=== PATIENT | female | born 1975 | race Caucasian/White ===

== ENCOUNTER 2016-10-26 12:59 | Emergency (ER) | payer MEDICARE ==
[~2016-10-26] VITALS: Ht 149.9 cm; Wt 67.1 kg
[~2016-10-26 12:59] MED LIST: BENADRYL25 MG PO; BENTYL10 MG PO; MUCINEX600 MG PO; NEURONTIN100 MG PO; NORCO 10-325 T1 EACH PO; NORCO 7.5-3251 EACH PO; PAIN RELIEF EX500 MG PO; PANTOPRAZOLE SO40 MG PO; PROMETHAZI6.25 MG/5 PO; PROMETHAZINE HC25 M1 PO; [UNRECOGNIZED DRUG - OTHER]
[2016-10-26] MEDS ORDERED: NORTRIPTYLINE H50 MG PO (13:13)
[2016-10-26] MEDS ORDERED: NORCO 5-325 TA1 EACH PO (16:41)
== END 2016-10-26 16:58 | disposition home or self-care (01) ==
LOC: ED 12:59
DX: Q79.59 Other congenital malformations of abdominal wall (principal); F17.200 Nicotine dependence, unspecified, uncomplicated; Z90.49 Acquired absence of other specified parts of digestive tract; Z90.710 Acquired absence of both cervix and uterus; Z88.1 Allergy status to other antibiotic agents; Z88.8 Allergy status to other drugs, medicaments and biological substances; Z88.5 Allergy status to narcotic agent; Z79.899 Other long term (current) drug therapy
CPT/HCPCS: 36415; 74177; 80053; 81001; 84703; 85025; 96361; 96374; 96375; 99284; J1170; J2550; J7120; Q9967

== ENCOUNTER 2016-11-30 18:02 | Emergency (ER) | payer MEDICARE ==
[~2016-11-30] VITALS: Ht 149.9 cm; Wt 62.6 kg
[~2016-11-30 18:02] MED LIST changes: +NORCO 5-325 TA1 EACH PO; +NORTRIPTYLINE H50 MG PO
[2016-11-30] MEDS ORDERED: NORCO 5-325 TA1 EACH PO (22:11)
== END 2016-11-30 22:37 | disposition home or self-care (01) ==
LOC: ED 18:02
DX: R10.12 Left upper quadrant pain (principal); K46.9 Unspecified abdominal hernia without obstruction or gangrene; Z98.890 Other specified postprocedural states; Z88.1 Allergy status to other antibiotic agents; Z88.5 Allergy status to narcotic agent; Z79.899 Other long term (current) drug therapy
CPT/HCPCS: 36415; 80053; 81001; 83690; 85025; 96361; 96374; 96375; 99284; J1170; J2550; J7030

== ENCOUNTER 2016-12-18 19:22 | Emergency (ER) | payer MEDICARE ==
[~2016-12-18] VITALS: Ht 149.9 cm; Wt 66.2 kg
[2016-12-18] MEDS ORDERED: GABAPENTIN100 MG PO (22:01)
[2016-12-18] MEDS ORDERED: NORCO 5-325 TA1 EACH PO (23:11)
== END 2016-12-18 23:30 | disposition home or self-care (01) ==
LOC: ED 19:22
DX: K43.9 Ventral hernia without obstruction or gangrene (principal); Z90.710 Acquired absence of both cervix and uterus; Z98.890 Other specified postprocedural states; Z90.49 Acquired absence of other specified parts of digestive tract; Z93.3 Colostomy status; Z93.2 Ileostomy status; Z88.1 Allergy status to other antibiotic agents; Z88.5 Allergy status to narcotic agent; Z79.899 Other long term (current) drug therapy
CPT/HCPCS: 99283

== ENCOUNTER 2017-02-14 14:28 | Emergency (ER) | payer MEDICARE ==
[~2017-02-14] VITALS: Ht 149.9 cm; Wt 66.2 kg
[~2017-02-14 14:28] MED LIST changes: +GABAPENTIN100 MG PO
[2017-02-14] MEDS ORDERED: BACTRIM DS TAB1 EACH PO (15:59)
== END 2017-02-14 16:08 | disposition home or self-care (01) ==
LOC: ED 14:28
DX: Z48.815 Encounter for surgical aftercare following surgery on the digestive system (principal); Z98.890 Other specified postprocedural states; Z90.710 Acquired absence of both cervix and uterus; Z93.2 Ileostomy status; Z90.49 Acquired absence of other specified parts of digestive tract; Z88.1 Allergy status to other antibiotic agents; Z88.8 Allergy status to other drugs, medicaments and biological substances; Z88.5 Allergy status to narcotic agent; Z88.0 Allergy status to penicillin; Z79.899 Other long term (current) drug therapy
CPT/HCPCS: 99283

== ENCOUNTER → 2017-06-14 | Emergency (ER) | payer OTHER, MEDICARE ==
[~2017-06-14] VITALS: Ht 149.9 cm; Wt 56.9 kg
[~2017-06-14] MED LIST changes: +ALLERGY RELIEF10 M1 PO; +BACTRIM DS TAB1 EACH PO; +METHYLPREDNISOLO4 M1 PO
== END ==
LOC: ED 08:49
DX: S63.501A Unspecified sprain of right wrist, initial encounter (principal); X58.XXXA Exposure to other specified factors, initial encounter; F17.200 Nicotine dependence, unspecified, uncomplicated; Z88.1 Allergy status to other antibiotic agents; Z88.8 Allergy status to other drugs, medicaments and biological substances; Z88.5 Allergy status to narcotic agent; Z88.0 Allergy status to penicillin; Z79.899 Other long term (current) drug therapy
CPT/HCPCS: 73080; 73110; 99283

== ENCOUNTER 2017-08-22 21:54 | Emergency (ER) | payer MEDICARE ==
[~2017-08-22] VITALS: Ht 149.9 cm; Wt 56.9 kg
[2017-08-22] MEDS ORDERED: XYZAL5 MG PO (22:20)
[2017-08-22] MEDS ORDERED: KEFLEX500 MG PO (23:43)
[2017-08-22] MEDS ORDERED: TRAMADOL HCL50 MG PO (23:44)
== END 2017-08-23 00:07 | disposition home or self-care (01) ==
LOC: ED 21:54
DX: N12 Tubulo-interstitial nephritis, not specified as acute or chronic (principal); F17.200 Nicotine dependence, unspecified, uncomplicated; Z88.1 Allergy status to other antibiotic agents; Z88.8 Allergy status to other drugs, medicaments and biological substances; Z88.5 Allergy status to narcotic agent; Z88.0 Allergy status to penicillin; Z79.899 Other long term (current) drug therapy
CPT/HCPCS: 74176; 80053; 81001; 83690; 85025; 96374; 96375; 99284; J1170; J1200; J1885

== ENCOUNTER 2017-08-25 16:02 | Emergency (ER) | payer MEDICARE ==
[~2017-08-25] VITALS: Ht 149.9 cm; Wt 56.9 kg
[~2017-08-25 16:02] MED LIST changes: +KEFLEX500 MG PO; +TRAMADOL HCL50 MG PO; +XYZAL5 MG PO
[2017-08-25] MEDS ORDERED: PROMETHAZINE HC25 M1 PO (20:21)
--- NOTE | 2017-08-27 09:30 | CONS ---
[facility] [address], [place] [address] Signed DATE OF CONSULTATION: 08/25/2017 CONSULTING PHYSICIAN: Twyla Reyna MD REQUESTING PHYSICIAN: Henok Bloom MD PROBLEM: Left-sided abdominal pain, questionable spigelian hernia. HISTORY OF PRESENT ILLNESS: This 41-year-old white woman is accompanied by her . She has a very complex past history. In brief, she underwent a laparoscopic hiatal hernia repair in [place], [place] at [facility] in 2011. This resulted in delay of diagnosis perforation of the bowel in someway requiring reoperation including open abdomen, diverting ileostomy, and other uncertain measures. She was transferred to [facility]. 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 Ultimately, the ostomy was reversed, which resulted in a significant incisional hernia. In January of 2017, she underwent incisional hernia repair by Dr. Burkett at [facility] in [facility], which from what I can gather likely involved component separation as well as implantation of mesh for incomplete mobilization of the fascia to the midline. She has been recovering from that. She was seen in the emergency room on August 22 and found to have a urinary tract infection for which she was treated with antibiotics. She returns at this time with complaints of poorly localized abdominal pain including on the left abdominal wall and possibly the left flank. A CT scan was performed, which showed anatomy of the incisional hernia repair showing good apposition of the rectus muscles and suggestion of hernia mesh near the rectus sheath. 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 There is no evidence of proximal or distal dilation or strangulation. No free fluid or inflammatory changes particularly. Incidentally noted was no evidence of nephrolithiasis or hydroureteral nephrosis, a Electronically Signed By: TWYLA REYNA MD 08/27/17 0930 PATIENT NAME: NINA SPEARS CONSULTATION DATE OF : 71 REPORT #: [id number] PHYSICIAN: TWYLA REYNA MD PCP: JUSTICE MORALES DO REPORT IS CONFIDENTIAL AND NOT TO BE RELEASED WITHOUT AUTHORIZATION [facility] [address], [place] [address] Signed widely patent SMA and ROMINA, but severe stenosis of celiac artery and findings of appendectomy and prior hysterectomy. I was consulted by Dr. Bloom as the patient is generally feeling quite well, has no white count, no fever, no signs of dehydration and the patient has been able to eat and drink without problem. The extent to which her urinary tract infection may be a manifestation with pain at this time is uncertain. REVIEW OF SYSTEMS: She denies any shortness of breath or chest pain. She is having no dysuria currently. She has had no nausea or vomiting. Her pain is not localized, it is mild. PHYSICAL EXAMINATION: GENERAL: Pleasant white woman accompanied by her . Trachea is midline. CHEST: Clear. HEART: Regular without murmur. ABDOMEN: Nondistended and soft. A healing midline incision is noted. Palpation along the incision site shows no sign of tenderness. There is no sign of infection. A left lower abdomen ileostomy and probably mucous fistula site is noted. Palpation of the area shows only subcutaneous scar tissue, no tenderness, no mass. EXTREMITIES: Show no clubbing, cyanosis, or edema. She does not have focal tenderness. DIAGNOSTIC DATA: I have reviewed her CT scan in detail. The area in question of "spigelian hernia" is noted and a small portion of the descending colon is noted in the area as well. It is not associated with any inflammatory change. A comparison view was undertaken of August the CT scan that was obtained as well. The area in question is similar, though not completely the same as there was no air distending the colon in that particular area. ASSESSMENT AND PLAN: I think it is unlikely to be a true spigelian hernia. I think the site in question is rather the attenuated side of prior ileostomy formation. It is clear that the transversus and internal oblique muscle layers have thinning or attenuation in the area and the external oblique is intact and it is likely true that a small portion of the colonic wall rest in that area. There is no sign of inflammation, no sign of obstruction and the colon is notoriously unlikely to be obstructed even if a Vega type position of the bowel is noted in an inter parietal small defect. I do not believe that operative intervention at this time is warranted. She is clinically doing well. I would agree with Dr. Bloom's plan to have the patient follow up with Dr. Morales in the coming week and followup for urinary tract infection and also as regard to the abdominal wall issue. I offered the patient to be admitted Electronically Signed By: TWYLA REYNA MD 08/27/17 0930 PATIENT NAME: NINA SPEARS CONSULTATION DATE OF : 71 REPORT #: [id number] PHYSICIAN: TWYLA REYNA MD PCP: JUSTICE MORALES DO REPORT IS CONFIDENTIAL AND NOT TO BE RELEASED WITHOUT AUTHORIZATION [facility] [address] [place] [address] Signed overnight for observation and further monitoring, but she strongly wishes not to do that if possible. She tells me she has had "14 months" of hospitalization more or less from the beginning of her surgical misadventures in 2011 and she certainly does not want to be in the hospital at all if possible. I did advise her that if things should worsen in some way, particularly nausea, vomiting, localized pain or other issue to call me or to return to the ER at once at which point, further consideration of this situation will be undertaken. She agrees to that. I reviewed this also with Dr. Bloom. MD AILEEN Zhao/NOELL /[id number] cc: Dr. Henok Burkett [facility] Henok Bloom MD Copies: HENOK BLOOM MD ~ Electronically Signed By: TWYLA REYNA MD 08/27/17 0930 PATIENT NAME: NINA SPEARS JOHN CONSULTATION DATE OF : 71 REPORT #: [id number] PHYSICIAN: TWYLA REYNA MD PCP: JUSTICE MORALES DO REPORT IS CONFIDENTIAL AND NOT TO BE RELEASED WITHOUT AUTHORIZATION
== END 2017-08-25 20:36 | disposition home or self-care (01) ==
LOC: ED 16:02
DX: R10.9 Unspecified abdominal pain (principal); F17.200 Nicotine dependence, unspecified, uncomplicated; Z87.442 Personal history of urinary calculi; Z88.1 Allergy status to other antibiotic agents; Z88.8 Allergy status to other drugs, medicaments and biological substances; Z88.5 Allergy status to narcotic agent; Z88.0 Allergy status to penicillin; Z79.899 Other long term (current) drug therapy
CPT/HCPCS: 74177; 80053; 81001; 85025; 96372; 96374; 96375; 99284; J1170; J1200; J1885; J2550; Q9967

== ENCOUNTER 2018-03-10 13:22 | Emergency (ER) | payer OTHER, MEDICARE ==
[~2018-03-10] VITALS: Ht 149.9 cm; Wt 56.9 kg
--- OUTSIDE RECORDS SUMMARY | 2018-03-10 13:26 | XMS ---
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 Care History Medical/Surgical 08/27/2017 [facility] - Patient is currently established with [facility]. If patient is seen in the ED during business hours. Please contact CHWs at [facility] at Ext [phone]. Care Recommendation: This patient has had 5 or more Emergency Department visits in the last 12 months.\T\nbsp; Patient requires education on the scope and purpose of the ED as an acute care provider not a Primary Care Provider and should not be utilized for chronic conditions.\T\nbsp; If patient returns to ED please contact Community Health WorkerKarime at [phone]. These are guidelines and the provider should exercise clinical judgment when providing care. E.D. VISIT COUNT (12 MO.) [address] [facility] TOTAL 5 NOTE: Visits indicate total known visits. ED/UCC VISIT TRACKING (12 MO.) 03/10/2018 13:23 [facility] [place] TYPE: Emergency COMPLAINT: - CHEST PAIN 08/30/2017 21:59 [facility] [place] TYPE: Emergency COMPLAINT: - POSS HERNIA DIAGNOSES: - Allergy status to other drugs, medicaments and biological substances status - Other half-way (current) drug therapy - Elevated white blood cell count, unspecified - Nicotine dependence, unspecified, uncomplicated - Allergy status to penicillin - Left lower quadrant pain - Allergy status to other antibiotic agents status 08/25/2017 16:03 [facility] [place] TYPE: Emergency COMPLAINT: - ABD PAIN DIAGNOSES: - Personal history of urinary calculi - Allergy status to penicillin - 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 - Allergy status to other drugs, medicaments and biological substances status - Allergy status to other antibiotic agents status - Unspecified abdominal pain - Nicotine dependence, unspecified, uncomplicated - Allergy status to narcotic agent status 08/22/2017 21:55 [facility] [place] TYPE: Emergency COMPLAINT: - L FLANK PAIN DIAGNOSES: - Allergy status to narcotic agent status - Nicotine dependence, unspecified, uncomplicated - Allergy status to other drugs, medicaments and biological substances status - Allergy status to penicillin - 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 - Unspecified abdominal pain - Allergy status to other antibiotic agents status - Tubulo-interstitial nephritis, not specified as acute or chronic 06/14/2017 08:[address] [facility] [place] TYPE: Emergency COMPLAINT: - R WRIST PAIN/INJURY DIAGNOSES: - Other half-way (current) drug therapy - Pain in right wrist - Unspecified sprain of right wrist, initial encounter - Allergy status to penicillin - Allergy status to narcotic agent status - Exposure to other specified factors, initial encounter - Allergy status to other antibiotic agents status - Allergy status to other drugs, medicaments and biological substances status - Nicotine dependence, unspecified, uncomplicated INPATIENT VISIT TRACKING (12 MO.) No inpatient visits to display in this time frame [email or web address]
--- NOTE | 2018-03-11 12:16 | EKG ---
[facility] [address] [facility] [place] [address] Signed Sinus tachycardia Possible Left atrial enlargement Borderline ECG No previous ECGs available Confirmed by BRADY RUBY DO ([id number]) on 03/11/2018 12:16:26 PM Electronically Signed By: BRADY RUBY DO 03/11/18 1216 PATIENT NAME: NINA SPEARS Electrocardiogram DATE OF : 71 PHYSICIAN: BRADY RUBY DO REPORT #: [id number] REPORT IS CONFIDENTIAL AND NOT TO BE RELEASED WITHOUT AUTHORIZATION
== END 2018-03-10 16:47 | disposition home or self-care (01) ==
LOC: ED 13:22
DX: R07.89 Other chest pain (principal); Z87.442 Personal history of urinary calculi; F17.200 Nicotine dependence, unspecified, uncomplicated; Z90.710 Acquired absence of both cervix and uterus; Z87.81 Personal history of (healed) traumatic fracture; Z88.1 Allergy status to other antibiotic agents; Z88.5 Allergy status to narcotic agent; Z88.0 Allergy status to penicillin; Z88.8 Allergy status to other drugs, medicaments and biological substances; Z79.899 Other long term (current) drug therapy
CPT/HCPCS: 71046; 80053; 83690; 84484; 85025; 93005; 93010; 96374; 99285-25; J1885

== ENCOUNTER 2018-05-07 08:09 | Emergency (ER) | payer MEDICARE, OTHER ==
[~2018-05-07] VITALS: Ht 149.9 cm; Wt 62.8 kg
--- OUTSIDE RECORDS SUMMARY | ~2018-05-07 | XMS | Clinical Summary ---
Demographics + + + | Address | [address] | | | [place] [address] | + + + | Home Phone | | + + + | Preferred Language | Unknown | + + + | Marital Status | Single | + + + | Alevism Affiliation | NON | + + + | Race | White | + + + | Ethnic Group | Not or | + + + Author + + + | Author | [facility] | + + + | Organization | [facility] | + + + | Address | Unknown | + + + | Phone | Unavailable | + + + Support + + +---------+ + | Name | Relationship | Address | Phone | + + +---------+ + | Federico Spears | ECON | Unknown | | + + +---------+ + | Kaleb Meade | ECON | Unknown | | + + +---------+ + Care Team Providers + +------+ + | Care Public Address System Mechanic Name | Role | Phone | + +------+ + | Amari Scanlon DO | PP | | + +------+ + Source Comments [facility] is fully live on both EpicCare Ambulatory and EpicCare InPatient[facility] Allergies + + + + + + | Active Allergy | Reactions | Severity | Noted | Comments | | | | | Date | | + + + + + + | Clindamycin | Hives | High | 12/13/19 | | | | | | 17 | | + + + + + + | Meperidine (Pf) | Hives | | 01/03/20 | | | | | | 12 | | + + + + + + | Morphine | Unknown | | 08/25/19 | | | | | | 05 | | + + + + + + | Prochlorperazine | Unknown | | 03/25/19 | | | | | | 15 | | + + + + + + | Adhesive Tape | Hives | | 01/10/20 | Paper tape, | | | | | 17 | tegaderm ok | + + + + + + | Ondansetron Hcl (Pf) | Hives | High | 01/03/20 | | | | | | 12 | | + + + + + + Current Medications + + +---------+---------+------+------+-------+ | Prescription | Sig. | Disp. | Refills | Star | End | Statu | | | | | | t | Date | s | | | | | | Date | | | + + +---------+---------+------+------+-------+ | diphenhydrAMINE | Take by mouth. | | | | | Activ | | 12.5 mg/5 mL oral | | | | | | e | | liquid | | | | | | | + + +---------+---------+------+------+-------+ | CYANOCOBALAMIN, | Take by mouth once | | | | | Activ | | VITAMIN B-12, | daily | | | | | e | | (VITAMIN B-12 ORAL) | | | | | | | + + +---------+---------+------+------+-------+ | nortriptyline 50 | Take 1 capsule by | 30 | 0 | 06/1 | | Activ | | mg oral capsule | mouth once daily at | capsule | | 3/20 | | e | | | bedtime. | | | 17 | | | + + +---------+---------+------+------+-------+ | cholecalciferol | Take 5,000 Units by | | | | | Activ | | (Vitamin D3) 1,000 | mouth once daily. | | | | | e | | unit oral tablet | | | | | | | + + +---------+---------+------+------+-------+ | BISMUTH | Take by mouth as | | | | | Activ | | SUBSALICYLATE | needed | | | | | e | | (PEPTO-BISMOL ORAL) | | | | | | | + + +---------+---------+------+------+-------+ | SUMATRIPTAN | Take by mouth as | | | | | Activ | | SUCCINATE (IMITREX | needed | | | | | e | | ORAL) | | | | | | | + + +---------+---------+------+------+-------+ | polyethylene | Mix 17 g in liquid | 238 g | 0 | 12/0 | | Activ | | glycol (MIRALAX) 17 | and drink three | | | 8/20 | | e | | gram/dose oral | times daily as | | | 17 | | | | powderIndications: | needed. Indications: | | | | | | | constipation | constipation | | | | | | + + +---------+---------+------+------+-------+ | senna-docusate | Take 1 tablet by | 60 | 0 | 12/0 | | Activ | | 8.6-50 mg oral | mouth twice daily as | tablet | | 8/20 | | e | | tabletIndications: | needed. | | | 17 | | | | constipation | Indications: | | | | | | | | constipation | | | | | | + + +---------+---------+------+------+-------+ | gabapentin 300 mg | Take 1 capsule by | 90 | 1 | 12/1 | | Activ | | oral | mouth three times | capsule | | 8/20 | | e | | capsuleIndications: | daily. Indications: | | | 17 | | | | acute pain following | Postoperative Acute | | | | | | | an operation | Pain | | | | | | + + +---------+---------+------+------+-------+ | | Take 1 tablet by | | | | | Activ | | trimethoprim-sulfame | mouth two times | | | | | e | | thoxazole 160-800 mg | daily. 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 States this is treating pain almost adequately. Will | | increase dose and monitor. | + + + + + | Bowel perforation with open abdomen and multiple small bowel | 01/17/2012 | | fistulas | | + + + + + | Overview: Rad[place] Spears is a 36 yo F with extensive | | surgical history and chronic abdominal pain and a ventral hernia | | who was taken to the OR on 12/19 for extensive laparoscopic LUCY | | and repair of VHR. On POD five, found to have severe abdominal | | pain, peritonitis with free air on imaging was taken to the OR | | for laparotomy. On December 30, she again returned to the OR | | again for peritonitis and bilious enteric output from multiple | | drains. She was transferred to [facility] ICU. She underwent multiple | | procedures. She progressed and was transferred to the [facility]. | | Continues with open abdomen. AbThera removed on 01/17/12 with | | wound distributor sales manager to contain fluid as she has multiple | | fistulas. Goal is to continue TPN, sips of clears, and wound | | management with surgical closure in the distant future. | | 01/19/12 has had continued fevers. CT demonstrating stable or | | decreased size of fluid collections. None appear to be amenable | | to percutaneous drainage. Resolution of pneumatosis intestinalis. | | Continues with purulent to bilious drainage from ileana drains. | | 01/23/2012 Continues with fevers daily. Tmax today is 39.3. Blood | | culture drawn. RUQ drain removed. 01/24/2012 RLQ drain with | | succus; LUQ and RUQ with thin green fluid. 01/31: No further | | fevers, off abxPLAN: - Continue with IV antibiotics Vancomycin, | | fluconazole and Zosyn until fevers resolve. DC'd on 01/19- | | Replacement fluid from fistulas 02/20 :1ml of LR daily. | + + + + + | Electrolyte imbalance | 01/17/2012 | + + + + + | Overview: Replete PRN for Hypokalemia, Hypomagnesemia and | | Hypophosphatemia | + + + + + | Severe malnutrition (HCC) | 01/17/2012 | + + + + ------+ | Overview: Prealbumin 3Plan:- will continue on TPN 01/24/12 | | started on cyclic TPN - limit oral intake and will continue TPN | | due to multiple small bowel fistulas to open abdomen. | |- limit oral intake and will continue TPN due to multiple small bowel fistulas to open abdo men. | + ------+ + + + | Thrombosis of arm | 01/15/2012 | + + + + + | Overview: 01/07/12 An abnormal venous examination | | demonstrating superficial venous thrombosis involving the | | basilic, median antecubital and cephalic veins of the left upper | | extremity. There is no evidence of deep venous thrombosis, and | | the right upper extremity was not examined. 01/17/12 LUE with no | | thrombus. Resolved. | |Resolved. | + + + + + | Sepsis (HCC) | 01/02/2012 | + + + + + | Overview: ICD10 | + + + + + | Crohn's disease | 01/02/2012 | + + + | IBD (inflammatory bowel disease) | | + + + Family History + + +------+ + | Medical History | Relation | Name | Comments | + + +------+ + | Cancer | Father | | | + + +------+ + | Heart Disease | Father | | | + + +------+ + + +------+ + + | Relation | Name | Status | Comments | + +------+ + + | Father | | | | + +------+ + + | Mother | | Alive | | + +------+ + + Social History + + + +--------+ + | Tobacco Use | Types | Packs/Day | Years | Date | | | | | Used | | + + + +--------+ + | Former Smoker | E-cigarettes, | 0.5 | 15 | Quit: 11/09/2016 | | | Cigarettes | | | | + + + +--------+ + + +---+---+---+ | Smokeless Tobacco: | | | | | Never Used | | | | + +---+---+---+ + + | Comments: Former Cigarettes for 15 years .5 ppd | + + + + +---------+ + | Alcohol Use | Drinks/We | oz/Week | Comments | | | ek | | | + + +---------+ + | No | | | | + + +---------+ + + + + | Sex Assigned at | Date Recorded | | | | + + + | Not on file | | + + + Last Filed Vital Signs + + + + | Vital Sign | Reading | Time Taken | + + + + | Blood Pressure | 126/73 | 02/20/2017 1:21 PM PST | + + + + | Pulse | 110 | 02/20/2017 1:21 PM PST | + + + + | Temperature | 36.6 C (97.9 F) | 02/20/2017 1:21 PM PST | + + + + | Respiratory Rate | 18 | 02/20/2017 1:21 PM PST | + + + + | Oxygen Saturation | 93% | 01/26/2017 8:56 AM PST | + + + + | Inhaled Oxygen | - | - | | Concentration | | | + + + + | Weight | 65.4 kg (144 lb 1.6 | 02/20/2017 1:21 PM PST | | | oz) | | + + + + | Height | 149.9 cm (4' 11") | 02/20/2017 1:21 PM PST | + + + + | Body Mass Index | 29.1 | 02/20/2017 1:21 PM PST | + + + + Plan of Treatment + + + + + | Health Maintenance | Due Date | Last Done | Comments | + + + + + | Influenza (Flu) | | 02/01/2017 | | | vaccination (#1) | 8 | | | + + + + + Implants + +------+--------+ +--------+--------+--------+ | Implanted | Type | Area | Manufacture | Device | Expira | Model | | | | | r | | tion | / | | | | | | Identi | Date | Serial | | | | | | fier | | / Lot | + +------+--------+ +--------+--------+--------+ | Implant Alloderm Rtm 8 X 16 | | N/A: | [employer] | | 11/18/ | [id number] | | Thin Mesh - | | Abdome | | | 2017 | 8 / | | [id number]: Qty: 1 on | | n | | | | /[id number] | | 01/22/2017 by Antonia Frost | | | | | | [id number] | | MD [place]ize | | | | | | 5 | + +------+--------+ +--------+--------+--------+ | Matrix Tissue 16x8cm Alloderm | | N/A: | [employer] | | 02/18/ | [id number] | | Thick Acellular Dermis | | Abdome | | | 2017 | 8 / | | Allograft Regenerative Freeze | | n | | | | /[id number] | | Dried - [id number]: | | | | | | [id number] | | Qty: 1 on 01/22/2017 by | | | | | | 0 | | Antonia Frost MD | | | | | | | + +------+--------+ +--------+--------+--------+ | Implant Perferated Mesh | | N/A: | | | 08/18/ | | | Strattice Porcine Matrix 20 X | | Abdome | | | 2018 | 2P / | | 30cm Firm 1000cm | | n | | | | /[id number] | | CoverageImplanted: Qty: 1 on | | | | | | [id number] | | 01/22/2017 by Antonia Frost | | | | | | 0 | | MD Alize | | | | | | | + +------+--------+ +--------+--------+--------+ Results Not on filefrom Last 3 Months Insurance + +--------+ +--------+ + + | Payer | Benefi | Subscriber | Type | Phone | Address | | | t Plan | ID | | | | | | / | | | | | | | Group | | | | | + +--------+ +--------+ + + | MEDICARE | MEDICA | xxxxxxxxxx | Medica | +- | [address] | | | [place] & | | re | [phone] | [place] [address] | | | B | | | | | + +--------+ +--------+ + + + +--------+ +--------+ + + | Guarantor Name | Accoun | Relation to | Date | Phone | Billing Address | | | t Type | Patient | of | | | | | | | | | | + +--------+ +--------+ + + | RADHA SPEARS | Person | Self [birth year] Home: | [address] [facility] [address] | | | al/Fam | | 1976 | [phone] | [place] [address] | | | [place] | | | [phone] | | + +--------+ +--------+ + +
--- OUTSIDE RECORDS SUMMARY | ~2018-05-07 | XMS | Clinical Summary ---
Demographics + + + | Address | [address] | | | [address] | | | [place] [address] | + + + | Home Phone | | + + + | Preferred Language | Unknown | + + + | Marital Status | | + + + | Cheondoism Affiliation | Unknown | + + + | Race | Unknown | + + + | Ethnic Group | Unknown | + + + Author + + + | Author | [facility] | | | and [place] | + + + | Organization | [facility] | | | and [place] | + + + | Address | Unknown | + + + | Phone | Unavailable | + + + Support + + + + + | Name | Relationship | Address | Phone | + + + + + | Catherine Craig | ECON | [address] | | | | | [place] [address] | | + + + + + | Federico Spears | ECON | [address] | | | | | [place] [address] | | + + + + + Care Team Providers + +------+ + | Care Infantry Unit Leader Name | Role | Phone | + +------+ + | Pcp, Prov Inactive | PP | | + +------+ + Allergies + + + + + + | Active Allergy | Reactions | Severity | Noted | Comments | | | | | Date | | + + + + + + | Demerol | | | | | + + + + + + | Morphine | | | | | + + + + + + | Prochlorperazine | Other (See Comments) | | 11/21/19 | Restless legs. | | | | | 14 | | + + + + + + | Zofran | | | | | + + + + + + Current Medications + + +-------+---------+------+------+-------+ | Prescription | Sig. | Disp. | Refills | Star | End | Statu | | | | | | t | Date | s | | | | | | Date | | | + + +-------+---------+------+------+-------+ | Acetaminophen | TABS | | | 09/1 | | Activ | | (TYLENOL PO) | | | | 4/20 | | e | | | | | | 12 | | | + + +-------+---------+------+------+-------+ | SUMAtriptan | TABS | | | 05/0 | | Activ | | Succinate (IMITREX | | | | 8/20 | | e | | PO) | | | | 12 | | | + + +-------+---------+------+------+-------+ | traMADol (ULTRAM) | Take 50 mg by mouth | | | | | Activ | | 50 mg tablet | every 8 hours as | | | | | e | | | needed. | | | | | | + + +-------+---------+------+------+-------+ | diphenhydrAMINE | Take 50 mg by mouth | | | | | Activ | | (BENADRYL ALLERGY) | every 6 hours as | | | | | e | | 25 MG capsule | needed. | | | | | | + + +-------+---------+------+------+-------+ | bisacodyl | Take 5 mg by mouth 2 | | | | | Activ | | (DULCOLAX) 5 mg EC | times daily. | | | | | e | | tablet | | | | | | | + + +-------+---------+------+------+-------+ | polyethylene | Take 17 g by mouth 2 | | | | | Activ | | glycol (MIRALAX) | times daily. | | | | | e | | powder | | | | | | | + + +-------+---------+------+------+-------+ | docusate sodium | Take 100 mg by mouth | | | | | Activ | | (COLACE) 100 mg | 2 times daily. | | | | | e | | capsule | | | | | | | + + +-------+---------+------+------+-------+ | metoclopramide | Take 10 mg by mouth | | | | | Activ | | (REGLAN) 10 mg | 3 times daily | | | | | e | | tablet | (before meals). | | | | | | + + +-------+---------+------+------+-------+ | promethazine | Take 25 mg by mouth | | | | | Activ | | (PHENERGAN) 25 mg | every 6 hours as | | | | | e | | tablet | needed. | | | | | | + + +-------+---------+------+------+-------+ | HYDROmorphone | Take 4 mg by mouth | | | | | Activ | | (DILAUDID) 2 mg | every 4 hours as | | | | | e | | tablet | needed. | | | | | | + + +-------+---------+------+------+-------+ Active Problems + + + | Problem | Noted Date | + + + | HEADACHE | 06/15/2011 | + + + + + | Overview: ICD-10 Record update | + + + +---+ | CROHN'S DISEASE | | + +---+ Family History + + +------+ + | Medical History | Relation | Name | Comments | + + +------+ + | Cancer | Father | | | + + +------+ + | Heart disease | Father | | | + + +------+ + | Heart failure | Father | | | + + +------+ + | High cholesterol | Mother | | | + + +------+ + + +------+ + + | Relation | Name | Status | Comments | + +------+ + + | Father | | | heart failure | | | | (Age | | | | | 61) | | + +------+ + + | Mother | | Alive | | + +------+ + + | Sister | | Alive | unknown | + +------+ + + Social History + +-------+ +--------+ + | Tobacco Use | Types | Packs/Day | Years | Date | | | | | Used | | + +-------+ +--------+ + | Former Smoker | | | | Quit: 02/20/2013 | + +-------+ +--------+ + + + | Comments: 02/22 ppd | + + + + +---------+ [...] + + + | Blood Pressure | 97/66 | 11/21/2013828 PDT | + + + + | Pulse | 94 | 11/21/2013828 PDT | + + + + | Temperature | 36.7 C (98.1 F) | 11/21/2013724 PDT | + + + + | Respiratory Rate | 18 | 11/20/20131953 PDT | + + + + | Oxygen Saturation | 96% | 11/21/2013828 PDT | + + + + | Inhaled Oxygen | - | - | | Concentration | | | + + + + | Weight | 59 kg (130 lb) | 11/20/20131856 PDT | + + + + | Height | 149.9 cm (4' 11") | 11/20/20131856 PDT | + + + + | Body Mass Index | 26.26 | 11/20/20131856 PDT | + + + + Plan of Treatment + + + + + | Health Maintenance | Due Date | Last Done | Comments | + + + + + | Vaccine: | | | | | Dtap/Tdap/Td (1 - | 3 | | | | Tdap) | | | | + + + + + | Cervical Cancer | | | | | Screening (Pap) | 4 | | | + + + + + | Vaccine: Influenza | | | | | (#1) | 8 | | | + + + + + Results Not on filefrom Last 3 Months Insurance + +--------+ +--------+ +---------+ | Payer | Benefi | Subscriber | Type | Phone | Address | | | t Plan | ID | | | | | | / | | | | | | | Group | | | | | + +--------+ +--------+ +---------+ | [place] | MEDICA | [id number] | Medica | [phone] | | | ID | | id | [phone] | | | | [place] | | | | | + +--------+ +--------+ +---------+ + +--------+ +--------+ + + | Guarantor Name | Accoun | Relation to | Date | Phone | Billing Address | | | t Type | Patient | of | | | | | | | | | | + +--------+ +--------+ + + | RADHA SPEARS | Person | Self [birth year] | Home: | [address] | | | al/Fam | | 1976 | [phone] | [address] [place] | | | [place] | | | [phone] | [phone] | + +--------+ +--------+ + +
--- OUTSIDE RECORDS SUMMARY | ~2018-05-07 | XMS | Clinical Summary ---
Demographics + + + | Address | [address] | | | [address] | | | [place] [address] | + + + | Home Phone | | + + + | Preferred Language | Unknown | + + + | Marital Status | | + + + | Judaism Affiliation | Unknown | + + + | Race | Unknown | + + + | Ethnic Group | Unknown | + + + Author + + + | Author | [facility] | + + + | Organization | [facility] | + + + | Address | Unknown | + + + | Phone | Unavailable | + + + Support + + +---------+ + | Name | Relationship | Address | Phone | + + +---------+ + | Contact,None | ECON | Unknown | | + + +---------+ + Care Team Providers + +------+ + | Care Materials Planner Name | Role | Phone | + +------+ + | Ghislaine Amari | PP | | + +------+ + Allergies Not on File Current Medications Not on file Active Problems Not on file Encounters +--------+ + + + + | Date | Type | Specialty | Care Team | Description | +--------+ + + + + | 03/27/ | Documentati | | Ally Beltran DO | | | 2019 | on Only | | | | +--------+ + + + + from Last 3 Months Social History + +-------+ +--------+------+ | Tobacco Use | Types | Packs/Day | Years | Date | | | | | Used | | + +-------+ +--------+------+ | Never Assessed | | | | | + +-------+ +--------+------+ + + + | Sex Assigned at | Date Recorded | | | | + + + | Not on file | | + + + Plan of Treatment +--------+ + + + + | Date | Type | Specialty | Care Team | Description | +--------+ + + + + | 06/13/ | Initial | | Ally Beltran DO | | | 2019 | consult | | [address] | | | | | | [place] | | | | | | [address] | | | | | | | | +--------+ + + + + + + + + + | Health [...] filefrom Last 3 Months Insurance + +--------+ +------+-------+ + | Payer | Benefi | Subscriber | Type | Phone | Address | | | t Plan | ID | | | | | | / | | | | | | | Group | | | | | + +--------+ +------+-------+ + | AETNA | AETNA | [id number] | | | | | | - [place] | | | | | + +--------+ +------+-------+ + | MEDICARE | MEDICA | [id number] | | | [address] | | | RE | | | | [place] [address] | | | IP-OP | | | | | + +--------+ +------+-------+ + + +--------+ +--------+ + + | Guarantor Name | Accoun | Relation to | Date | Phone | Billing Address | | | t Type | Patient | of | | | | | | | | | | + +--------+ +--------+ + + | RADHA SPEARS | Person | Self | [birth year] | Home: | [address] | | | al/Gal | | 1975 | [phone] | [address] | | | [place] | | | [phone] | [place] | | | | | | | [address] | + +--------+ +--------+ + +"
--- OUTSIDE RECORDS SUMMARY | ~2018-05-07 | XMS | Clinical Summary ---
Demographics + + + | Address | [address] | | | [address] | | | [place] [address] | + + + | Home Phone | | + + + | Preferred Language | Unknown | + + + | Marital Status | | + + + | Gnosticist Affiliation | Unknown | + + + | Race | Unknown | + + + | Ethnic Group | Unknown | + + + Author + + + | Author | [facility] | | | and [place] | + + + | Organization | [facility] | | | [...] | | | | | [place] [address] | | + + + + + | Federico Spears | ECON | [address] | | | | | [place] [address] | | + + + + + Care Team Providers + +------+ + | Care Tractor Trailer Technician Name | Role | Phone | + [...] +---------+ | [place] | MEDICA | [id number] | Medica | [phone] | | [...] | | al/Fam | | 1976 | [phone] | [address] [place] | | | [place] | | | [phone] | [phone] | + +--------+ +--------+ + +
--- OUTSIDE RECORDS SUMMARY | ~2018-05-07 | XMS | Encounter Summary ---
Demographics + + + | Address | [address] | | | [address] | | | [place] [address] | + + + | Home Phone | | + + + | Preferred Language | Unknown | + + + | Marital Status | | + + + | Hinduism Affiliation | Unknown | + + + | Race | Unknown | + + + | Ethnic Group | Unknown | + + + Author + + + | Author | [employer] | + + + | Organization | [facility] | + + + | Address | Unknown | + + + | Phone | Unavailable | + + + Support + + +---------+ + | Name | Relationship | Address | Phone | + + +---------+ + | Contact,None | ECON | Unknown | | + + +---------+ + Care Team Providers + +------+ + | Care Line Installer Repairer Name | Role | Phone | + +------+ + | Amari Scanlon | PCP | | + +------+ + Encounter Details +--------+ + + + + | Date | Type | Department | Care Team | Description | +--------+ + + + + | 03/27/ | Documentati | [facility] | Ally Beltran DO | | | 2019 | on Only | Deng Monte[facility] | [address] | | | | | [address] | [facility] | | | | | [place] | [address] | | | | | [address] | | | | | | [phone] | | | +--------+ + + + + Social History + +-------+ +--------+------+ | Tobacco [...] on file | | + + + as of this encounter Plan of Treatment +--------+ + + + + | Date | Type | Specialty | Care Team | Description | +--------+ + + + + | 06/13/ | Initial | Cardiology | Ally Beltran DO | | | 2019 | consult | | [address] | | | | | | [place] | | | | | | [address] | | | | | | | | +--------+ + + + + as of this encounter Visit Diagnoses Not on filein this encounter"
--- OUTSIDE RECORDS SUMMARY | ~2018-05-07 | XMS | Encounter Summary ---
Demographics + + + | Address | [address] | | | [address] | | | [place] [address] | + + + | Home Phone | | + + + | Preferred Language | Unknown | + + + | Marital Status | | + + + | Protestant Affiliation | Unknown | + + + | Race | Unknown | + + + | Ethnic Group | Unknown | + + + Author + + + | Author | [facility] [employer] [employer] | + + + | Organization | [facility] | + + + | Address | Unknown | + + + | Phone | Unavailable | + + + Support + + +---------+ + | Name | Relationship | Address | Phone | + + +---------+ + | Contact,None | ECON | Unknown | | + + +---------+ + Care Team Providers + +------+ + | Care Salon/Spa Manager Name | Role | Phone | + [...] | | [address] | [facility] | | | | | [place] | [address] | | | | | [address] | | | | | | [phone] | | | +--------+ + + + [...] [place] | | | | | | [address] | | | | | | | | +--------+ + + + + as of this encounter Visit Diagnoses Not on filein this encounter"
--- OUTSIDE RECORDS SUMMARY | ~2018-05-07 | XMS | Clinical Summary ---
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 She was transferred to [facility] ICU. She underwent multiple | | procedures. She progressed and was transferred to the [facility]. | | Continues with open abdomen. AbThera removed on 01/17/12 with | | wound title search manager to contain fluid as she has [...] N/A: | LIFECELL | | 11/18/ | [id number] | | Thin Mesh - | | Abdome | | | 2017 | 8 / | | [id number]: Qty: 1 on | | n | | | | /[id number] | | 01/22/2017 by Antonia Frost | | | | | | 408-00 | | MD Alize | | | | | | 5 | + +------+--------+ +--------+--------+--------+ | Matrix Tissue 16x8cm Alloderm | | N/A: | LIFECELL | | 02/18/ | [id number] | | Thick Acellular Dermis | | Abdome | | | 2017 | 8 / | | Allograft Regenerative Freeze | | n | | | | /[id number] | | Dried - [id number]: | | | | | | 556-01 [...] | Medica | +- | [address] | | | RE A & | | re | [phone] | [place] [address] | | | B | | | [...] | [birth year]/ | Home: | PO [address] [facility] 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
--- OUTSIDE RECORDS SUMMARY | ~2018-05-07 | XMS | Clinical Summary ---
Demographics + + + | Address | [address] | | | [address] | | | [place] [address] | + + + | Home Phone | | + + + | Preferred Language | Unknown | + + + | Marital Status | | + + + | Yazidism Affiliation | Unknown | + + + | Race | Unknown | + + + | Ethnic Group | Unknown | + + + Author + + + | Author | [employer] [facility] | + + + | Organization | [facility] | + + + | Address | Unknown | + + + | Phone | Unavailable | + + + Support + + +---------+ + | Name | Relationship | Address | Phone | + + +---------+ + | Contact,None | ECON | Unknown | | + + +---------+ + Care Team Providers + +------+ + | Care Quill Layer Name | Role | Phone | + [...] | | | | | [place] | | | | | | [address] | | | | | | | [...] +------+-------+ + | AETNA | AETNA | [id number] | | | | | | - [place]HA | | | | | + +--------+ +------+-------+ + | MEDICARE | MEDICA | [id number] | | | [address] | | | RE | | | | [place] [phone] | | | IP-OP | | | [...] jackie | | | [phone] | [place] | | | | | | | [address] | + +--------+ +--------+ + +"
--- OUTSIDE RECORDS SUMMARY | 2018-05-07 08:12 | XMS ---
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 Care History Medical/Surgical 08/27/2017 [facility] - Patient is currently established with [facility]. If patient is seen in the ED during business hours. Please contact CHWs at [facility] at Ext [phone]. Care Recommendation: This patient has had 5 or more Emergency Department visits in the last 12 months.\T\nbsp; Patient requires education on the scope and purpose of the ED as an acute care provider not a Primary Care Provider and should not be utilized for chronic conditions.\T\nbsp; If patient returns to ED please contact Community Health WorkerKarime at [phone]. These are guidelines and the provider should exercise clinical judgment when providing care. [facility]eb VISIT COUNT (12 MO.) 6 [facility] TOTAL 6 NOTE: Visits indicate total known visits. ED/UCC VISIT TRACKING (12 MO.) 05/07/2018 08:10 [facility] [place] TYPE: Emergency COMPLAINT: - HEADACHE 03/10/2018 13:[address] [facility] [place] TYPE: Emergency COMPLAINT: - CHEST PAIN DIAGNOSES: - Allergy status to penicillin - Allergy status to other antibiotic agents status - Other long-term (current) drug therapy - Allergy status to narcotic agent status - Personal history of (healed) traumatic fracture - Chest pain, unspecified - Acquired absence of both cervix and uterus - Other chest pain - Personal history of urinary calculi - Allergy status to other drugs, medicaments and biological substances status - Nicotine dependence, unspecified, uncomplicated 08/30/2017 21:[address] [facility] [place] TYPE: Emergency COMPLAINT: - POSS HERNIA DIAGNOSES: - Allergy status to other drugs, medicaments and biological substances status - Other long-term (current) drug therapy - Elevated white blood cell count, unspecified - Nicotine dependence, unspecified, uncomplicated - Allergy status to penicillin - Left lower quadrant pain - Allergy status to other antibiotic agents status 08/25/2017 16:[address] 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
[2018-05-07] MEDS ORDERED: PEPTO-BISM525 MG/15 PO (08:25)
[2018-05-07] MEDS ORDERED: REGLAN10 MG PO (10:06)
== END 2018-05-07 10:31 | disposition home or self-care (01) ==
LOC: ED 08:09
DX: G43.909 Migraine, unspecified, not intractable, without status migrainosus (principal); Z87.442 Personal history of urinary calculi; Z87.891 Personal history of nicotine dependence; Z90.710 Acquired absence of both cervix and uterus; Z88.1 Allergy status to other antibiotic agents; Z88.5 Allergy status to narcotic agent; Z88.0 Allergy status to penicillin
CPT/HCPCS: 96361; 96374; 96375; 99283-25; J1100; J1200; J1885; J2765; J7030

== ENCOUNTER 2018-08-11 13:50 | Emergency (ER) | payer OTHER ==
[~2018-08-11] VITALS: Ht 149.9 cm; Wt 62.8 kg
[~2018-08-11 13:50] MED LIST changes: +PEPTO-BISM525 MG/15 PO; +REGLAN10 MG PO
--- OUTSIDE RECORDS SUMMARY | 2018-08-11 13:52 | XMS ---
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 Care History Medical/Surgical 08/27/2017 [facility] - Patient is currently established with [facility]. If patient is seen in the ED during business hours. Please contact CHWs at [facility] at Ext [phone]. Care Recommendation: This patient has had 5 or more Emergency Department visits in the last 12 months.\T\nbsp; Patient requires education on the scope and purpose of the ED as an acute care provider not a Primary Care Provider and should not be utilized for chronic conditions.\T\nbsp; If patient returns to ED please contact Community Health WorkerKarime at [phone]. These are guidelines and the provider should exercise clinical judgment when providing care. Zeb VISIT COUNT (12 MO.) 6 SANIA Brown TOTAL 6 NOTE: Visits indicate total known visits. ED/UCC VISIT TRACKING (12 MO.) 08/11/2018 13:50 [place] TYPE: Emergency COMPLAINT: - BLOOD PRESSURE PROBLEM, SOB 05/07/2018 08:10 [facility] [place] TYPE: Emergency COMPLAINT: - HEADACHE DIAGNOSES: - Personal history of urinary calculi - Allergy status to penicillin - Allergy status to other antibiotic agents status - Acquired absence of both cervix and uterus - Headache - Personal history of nicotine dependence - Allergy status to narcotic agent status - Migraine, unspecified, not intractable, without status migrainosus 03/10/2018 13:23 [facility] [place] TYPE: Emergency COMPLAINT: - CHEST PAIN DIAGNOSES: - Allergy status to penicillin - Allergy status to other antibiotic agents status - 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 - Allergy status to narcotic agent status - Personal history of (healed) traumatic fracture - Chest pain, unspecified - Acquired absence of both cervix and uterus - Other chest pain - Personal history of urinary calculi - Allergy status to other drugs, medicaments and biological substances status - Nicotine dependence, unspecified, uncomplicated 08/30/2017 21:59 [facility] [place] TYPE: Emergency COMPLAINT: - POSS HERNIA DIAGNOSES: - Allergy status to other drugs, medicaments and biological substances status - Other shelter (current) drug therapy - Elevated white blood cell count, unspecified - Nicotine dependence, unspecified, uncomplicated - Allergy status to penicillin - Left lower quadrant pain - Allergy status to other antibiotic agents status 08/25/2017 16:03 [facility] [place] TYPE: Emergency COMPLAINT: - ABD PAIN DIAGNOSES: - Personal history of urinary calculi - Allergy status to penicillin - Other shelter (current) drug therapy - Allergy status to [...] - Allergy status to penicillin - Other shelter (current) drug therapy - Unspecified abdominal pain - Allergy status to other antibiotic agents status - Tubulo-interstitial nephritis, not specified as acute or chronic INPATIENT VISIT TRACKING (12 MO.) No inpatient visits to display in this time frame [id number]
--- NOTE | 2018-08-12 13:08 | EKG ---
[facility] [address] [facility] [place] [address] Signed Normal sinus rhythm Normal ECG When compared with ECG of 10-MAR-2018 13:32, No significant change was found Confirmed by KATERINA FLORES MD ([id number]) on 08/12/2018 1:08:04 PM Electronically Signed By: KATERINA FLORES MD 08/12/18 1308 PATIENT NAME: NINA SPEARS JOHN Electrocardiogram DATE OF : 71 PHYSICIAN: KATERINA FLORES MD REPORT #: [id number] REPORT IS CONFIDENTIAL AND NOT TO BE RELEASED WITHOUT AUTHORIZATION
== END 2018-08-11 16:36 | disposition home or self-care (01) ==
LOC: ED 13:50
DX: R07.89 Other chest pain (principal); F41.9 Anxiety disorder, unspecified; Z87.442 Personal history of urinary calculi; Z87.891 Personal history of nicotine dependence; Z90.49 Acquired absence of other specified parts of digestive tract; Z90.710 Acquired absence of both cervix and uterus; Z88.8 Allergy status to other drugs, medicaments and biological substances; Z88.1 Allergy status to other antibiotic agents; Z88.5 Allergy status to narcotic agent; Z88.0 Allergy status to penicillin
CPT/HCPCS: 36415; 80053; 84484; 85025; 85379; 93005; 93010; 96374; 96375; 99285-25; J1885; J2060

== ENCOUNTER 2019-03-14 13:38 | Emergency (ER) | payer OTHER ==
[~2019-03-14] VITALS: Ht 149.9 cm; Wt 68.2 kg
--- OUTSIDE RECORDS SUMMARY | 2019-03-14 13:40 | XMS ---
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 Care History Medical/Surgical 08/27/2017 [facility] - Patient is currently established with [facility]. If patient is seen in the ED during business hours. Please contact CHWs at [facility] at Ext [phone]. Care Recommendation: This patient has had 5 or more Emergency Department visits in the last 12 months.\T\nbsp; Patient requires education on the scope and purpose of the ED as an acute care provider not a Primary Care Provider and should not be utilized for chronic conditions.\T\nbsp; If patient returns to ED please contact Community Health WorkerKarime at [phone]. These are guidelines and the provider should exercise clinical judgment when providing care. E.D. VISIT COUNT (12 MO.) [address] [facility] TOTAL 4 NOTE: Visits indicate total known visits. ED/UCC VISIT TRACKING (12 MO.) 03/14/2019 13:39 [facility] [place] TYPE: Emergency COMPLAINT: - ADMONIAL PAIN 09/02/2018 15:09 [facility] [place] TYPE: Emergency COMPLAINT: - ABD PAIN DIAGNOSES: - Left upper quadrant pain - Allergy status to penicillin - Allergy status to narcotic agent status - Acquired absence of other specified parts of digestive tract - Allergy status to oth drug/meds/biol subst status - Personal history of urinary calculi - Allergy status to other antibiotic agents status - Nicotine dependence, unspecified, uncomplicated - Acquired absence of both cervix and uterus 08/11/2018 13:50 [facility] [place] TYPE: Emergency COMPLAINT: - BLOOD PRESSURE PROBLEM, SOB DIAGNOSES: - Allergy status to oth drug/meds/biol subst status - Other chest pain - Personal history of nicotine dependence - Personal history of urinary calculi - Acquired absence of both cervix and uterus - Acquired absence of other specified parts of digestive tract - Anxiety disorder, unspecified - Allergy status to penicillin - Palpitations - Allergy status to narcotic agent status - Allergy status to other antibiotic agents status 05/07/2018 08:10 [facility] [place] TYPE: Emergency COMPLAINT: - HEADACHE DIAGNOSES: - Personal history of urinary calculi - Allergy status to penicillin - Allergy status to other antibiotic agents status - Acquired absence of both cervix and uterus - Headache - Personal history of nicotine dependence - Allergy status to narcotic agent status - Migraine, unsp, not intractable, without status migrainosus INPATIENT VISIT TRACKING (12 MO.) No inpatient visits to display in this time frame [id number]
[2019-03-14] MEDS ORDERED: GABAPENTIN400 MG PO (14:47)
[2019-03-14] MEDS ORDERED: REGLAN10 MG PO (16:19)
[2019-03-14] MEDS ORDERED: TRAMADOL HCL50 MG PO (16:19)
== END 2019-03-14 16:39 | disposition home or self-care (01) ==
LOC: ED 13:38
DX: R10.84 Generalized abdominal pain (principal); G43.909 Migraine, unspecified, not intractable, without status migrainosus; F17.200 Nicotine dependence, unspecified, uncomplicated; Z88.8 Allergy status to other drugs, medicaments and biological substances; Z88.1 Allergy status to other antibiotic agents; Z88.5 Allergy status to narcotic agent; Z88.0 Allergy status to penicillin; Z79.899 Other long term (current) drug therapy
CPT/HCPCS: 74177; 80053; 83690; 85025; 99284-25; J1170; J2765; J7030; Q9967

== ENCOUNTER 2019-05-01 14:07 | Emergency (ER) | payer OTHER, MEDICARE ==
[~2019-05-01] VITALS: Ht 149.9 cm; Wt 68.2 kg
[~2019-05-01 14:07] MED LIST changes: +GABAPENTIN400 MG PO
--- OUTSIDE RECORDS SUMMARY | 2019-05-01 14:10 | XMS ---
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 Care History Medical/Surgical 03/17/2019 [facility] Called patient - transferred call to Dr. Morales to schedule ED follow up appointment. 08/27/2017 [facility] - Patient is currently established with [facility]. If patient is seen in the ED during business hours. Please contact CHWs at [facility] at Ext [phone]. Care Recommendation: This patient has had 5 or more Emergency Department visits in the last 12 months.\T\nbsp; Patient requires education on the scope and purpose of the ED as an acute care provider not a Primary Care Provider and should not be utilized for chronic conditions.\T\nbsp; If patient returns to ED please contact Community Health Worker Karime at [phone]. These are guidelines and the provider should exercise clinical judgment when providing care. ELul VISIT COUNT (12 MO.) 5 SANIA Brown TOTAL 5 NOTE: Visits indicate total known visits. 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 [place] TYPE: Emergency COMPLAINT: - HEADACHE [...] visits to display in this time frame [id number]
== END 2019-05-01 16:10 | disposition home or self-care (01) ==
LOC: ED 14:07
DX: R10.12 Left upper quadrant pain (principal); G43.909 Migraine, unspecified, not intractable, without status migrainosus; F17.200 Nicotine dependence, unspecified, uncomplicated; Z88.1 Allergy status to other antibiotic agents; Z88.0 Allergy status to penicillin; Z88.5 Allergy status to narcotic agent; Z88.8 Allergy status to other drugs, medicaments and biological substances; Z79.899 Other long term (current) drug therapy
CPT/HCPCS: 80053; 83690; 85025; 96374; 96375; 96376; 99284-25; J2765; J3010; J7030

== ENCOUNTER 2019-12-25 10:57 | Emergency (ER) | payer OTHER ==
[~2019-12-25] VITALS: Ht 149.9 cm; Wt 57.8 kg
--- OUTSIDE RECORDS SUMMARY | 2019-12-25 10:58 | XMS ---
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 Care History Medical/Surgical 03/17/2019 [facility] Called patient - transferred call to Dr. Morales to schedule ED follow up appointment. 08/27/2017 [facility] - Patient is currently established with [facility]. If patient is seen in the ED during business hours. Please contact CHWs at [facility] at [phone]. Care Recommendation: This patient has had 5 or more Emergency Department visits in the last 12 months.\T\nbsp; Patient requires education on the scope and purpose of the ED as an acute care provider not a Primary Care Provider and should not be utilized for chronic conditions.\T\nbsp; If patient returns to ED please contact Community Health WorkerKarime at [phone]. These are guidelines and the provider should exercise clinical judgment when providing care. E.D. VISIT COUNT (12 MO.) 3 SANIA Brown TOTAL 3 NOTE: Visits indicate total known visits. ED/UCC VISIT TRACKING (12 MO.) 12/25/2019 10:57 [facility] [place] TYPE: Emergency COMPLAINT: - FLANK PAIN 05/01/2019 14:07 [facility] [place] TYPE: Emergency COMPLAINT: - ABD PAIN DIAGNOSES: - Allergy status to narcotic agent - Left upper quadrant pain - Allergy status to other antibiotic agents - Left upper quadrant pain - Allergy status to other drugs, medicaments and biological substances - Unspecified abdominal pain - Nicotine dependence, unspecified, uncomplicated - Allergy status to penicillin - Migraine, unspecified, not intractable, without status migrainosus - Other shelter (current) drug therapy 03/14/2019 13:39 [facility] [place] TYPE: Emergency COMPLAINT: - ADMONIAL PAIN DIAGNOSES: - Allergy status to other antibiotic agents - Allergy status to narcotic agent - Generalized abdominal pain - Nicotine dependence, unspecified, uncomplicated - Unspecified abdominal pain - Other oil heaterman (current) drug therapy - Allergy status to penicillin - Allergy status to other drugs, medicaments and biological substances - Migraine, unspecified, not intractable, without status migrainosus INPATIENT VISIT TRACKING (12 MO.) No inpatient visits to display in this time frame [id number]
[2019-12-25] MEDS ORDERED: NORCO 5-325 TA1 EACH PO (13:31)
== END 2019-12-25 13:49 | disposition home or self-care (01) ==
LOC: ED 10:57
DX: N23 Unspecified renal colic (principal); Z87.442 Personal history of urinary calculi; F17.200 Nicotine dependence, unspecified, uncomplicated; Z88.1 Allergy status to other antibiotic agents; Z88.8 Allergy status to other drugs, medicaments and biological substances; Z88.5 Allergy status to narcotic agent
CPT/HCPCS: 74176; 80053; 81001; 84703; 85025; 96374; 96375; 99284-25; J1200; J1885; J2765; J7030

== ENCOUNTER 2020-01-01 10:57 | Emergency (ER) | payer OTHER ==
[~2020-01-01] VITALS: Ht 149.9 cm; Wt 57.8 kg
--- OUTSIDE RECORDS SUMMARY | 2020-01-01 11:00 | XMS ---
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 - Has Care Guidelines - History of Sepsis Dx - [facility] - 2 Visits in 30 Days CARE PROVIDERS JUSTICE MORALES Internal Medicine 08/27/2017-Current PHONE: [phone] Justin has no Care Guidelines for this patient. Care History Medical/Surgical 12/29/2019 [facility] Patient stated she is still having trouble with pain as though there is still a stone that has not passed.\T\nbsp; She stated she will call Dr. Morales, PCP, to schedule follow up visit. 03/17/2019 [facility] Called patient - transferred call to Dr. Morales to schedule ED follow up appointment. 08/27/2017 [facility] - Patient is currently established with [facility]. If patient is seen in the ED during business hours. Please contact CHWs at [facility] at Ext [phone]. Care Recommendation: This patient has had 5 or more Emergency Department visits in the last 12 months.\T\nbsp; Patient requires education on the scope and purpose of the ED as an acute care provider not a Primary Care Provider and should not be utilized for chronic conditions.\T\nbsp; If patient returns to ED please contact Community Health WorkerKarime at [phone]. These are guidelines and the provider should exercise clinical judgment when providing care. Zeb VISIT COUNT (12 MO.) 4 SANIA Brown TOTAL 4 NOTE: Visits indicate total known visits. ED/UCC VISIT TRACKING (12 MO.) 01/01/2020 10:57 [facility] [place] TYPE: Emergency COMPLAINT: - ABD PAIN, URINE PROBLEM 12/25/2019 10:57 [facility] [place] TYPE: Emergency COMPLAINT: - FLANK PAIN DIAGNOSES: - Allergy status to narcotic agent - Allergy status to other drugs, medicaments and biological substances - Personal history of urinary calculi - Allergy status to other antibiotic agents - Nicotine dependence, unspecified, uncomplicated - Unspecified abdominal pain - Unspecified renal colic 05/01/2019 14:07 [facility] [place] D[place]re [place] TYPE: Emergency COMPLAINT: - ABD [...] not intractable, without status migrainosus - Other m[facility] (current) drug therapy 03/14/2019 13:[address] [facility] [place] TYPE: Emergency COMPLAINT: - ADMONIAL PAIN DIAGNOSES: - Allergy status to other antibiotic agents - Allergy status to narcotic agent - Generalized abdominal pain - Nicotine dependence, unspecified, uncomplicated - Unspecified abdominal pain - Other exterminator helper termite (current) drug therapy - Allergy status to penicillin - Allergy status to other drugs, medicaments and biological substances - Migraine, unspecified, not intractable, without status migrainosus INPATIENT VISIT TRACKING (12 MO.) No inpatient visits to display in this time frame [id number]
[2020-01-01] MEDS ORDERED: NEURONTIN400 MG PO (13:57)
== END 2020-01-01 15:03 | disposition home or self-care (01) ==
LOC: ED 10:57
DX: R10.30 Lower abdominal pain, unspecified (principal); G43.909 Migraine, unspecified, not intractable, without status migrainosus; F17.200 Nicotine dependence, unspecified, uncomplicated; Z88.1 Allergy status to other antibiotic agents; Z88.8 Allergy status to other drugs, medicaments and biological substances; Z88.0 Allergy status to penicillin; Z88.5 Allergy status to narcotic agent; Z79.899 Other long term (current) drug therapy
CPT/HCPCS: 36415; 51701; 74022; 80053; 81001; 83690; 84703; 85025; 99284-25; J1885

== ENCOUNTER 2020-07-22 12:39 | Emergency (ER) | payer BC ==
[~2020-07-22] VITALS: Ht 149.9 cm; Wt 63.2 kg
[~2020-07-22 12:39] MED LIST changes: +MULTI VITAMIN1 EACH PO; +NEURONTIN400 MG PO; +OMEPRAZOLE20 MG PO
--- OUTSIDE RECORDS SUMMARY | 2020-07-22 12:42 | XMS ---
PreManage Notification: NINA SPEARS Security Obstetric Assistant Events No recent Security Events currently on file CRITERIA MET - Group Notification - [facility] - Has Care Guidelines CARE PROVIDERS JUSTICE MORALES Internal Medicine 01/02/2020-Current PHONE: [phone] Justin has no Care Guidelines for this patient. Care History Medical/Surgical 12/29/2019 [facility] Patient stated she is still having trouble with pain as though there is still a stone that has not passed.\T\nbsp; She stated she will call Dr. Morales, PCP, to schedule follow up visit. 03/17/2019 [facility] Called patient - transferred call to Dr. Morales to schedule ED follow up appointment. 08/27/2017 [facility] - Patient is currently established with [facility]. If patient is seen in the ED during business hours. Please contact CHWs at [facility] at Ext [phone]. Care Recommendation: This patient has had 5 or more Emergency Department visits in the last 12 months.\T\nbsp; Patient requires education on the scope and purpose of the ED as an acute care provider not a Primary Care Provider and should not be utilized for chronic conditions.\T\nbsp; If patient returns to ED please contact Community Health WorkerKarime at [phone]. These are guidelines and the provider should exercise clinical judgment when providing care. E.D. VISIT COUNT (12 MO.) [address] [facility] TOTAL 4 NOTE: Visits indicate total known visits. ED/UCC VISIT TRACKING (12 MO.) 07/22/2020 12:40 [facility] [place] TYPE: Emergency COMPLAINT: - L HAND PAIN 03/30/2020 13:12 [facility] [place] TYPE: Emergency COMPLAINT: - BLEEDING 01/01/2020 10:57 [facility] [place] TYPE: Emergency COMPLAINT: - ABD PAIN, URINE PROBLEM DIAGNOSES: - Nicotine dependence, unspecified, uncomplicated - Allergy status to other antibiotic agents - Allergy status to narcotic agent - Allergy status to other drugs, medicaments and biological substances - Migraine, unspecified, not intractable, without status migrainosus - Allergy status to narcotic agent - Allergy status to penicillin - Lower abdominal pain, unspecified - Other meterman (current) drug therapy - Allergy status to other drugs, medicaments and biological substances - Allergy status to other antibiotic agents 12/25/2019 10:57 SANIA Dod[place] TYPE: Emergency COMPLAINT: - FLANK PAIN DIAGNOSES: - Allergy status to narcotic agent - Allergy status to other drugs, medicaments and biological substances - Personal history of urinary calculi - Allergy status to other antibiotic agents - Nicotine dependence, unspecified, uncomplicated - Unspecified abdominal pain - Allergy status to other drugs, medicaments and biological substances - Allergy status to other antibiotic agents - Unspecified renal colic - Allergy status to narcotic agent INPATIENT VISIT TRACKING (12 MO.) No inpatient visits to display in this time frame [id number]
[2020-07-22] MEDS ORDERED: MONTELUKAST SOD10 MG PO (13:07)
[2020-07-22] MEDS ORDERED: ZYRTEC10 MG PO (13:07)
== END 2020-07-22 15:38 | disposition home or self-care (01) ==
LOC: ED 12:39
DX: S63.92XA Sprain of unspecified part of left wrist and hand, initial encounter (principal); X50.9XXA Other and unspecified overexertion or strenuous movements or postures, initial encounter; G43.909 Migraine, unspecified, not intractable, without status migrainosus; F17.200 Nicotine dependence, unspecified, uncomplicated; Z88.1 Allergy status to other antibiotic agents; Z88.8 Allergy status to other drugs, medicaments and biological substances; Z88.0 Allergy status to penicillin; Z88.5 Allergy status to narcotic agent; Z79.899 Other long term (current) drug therapy
CPT/HCPCS: 73110; 73130; 99283-25

== ENCOUNTER 2020-12-08 15:33 | Emergency (ER) | payer BC ==
[~2020-12-08] VITALS: Ht 149.9 cm; Wt 59.2 kg
[~2020-12-08 15:33] MED LIST changes: +MONTELUKAST SOD10 MG PO; +ZYRTEC10 MG PO
--- OUTSIDE RECORDS SUMMARY | 2020-12-08 17:33 | XMS ---
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 Care History Medical/Surgical 12/29/2019 [facility] Patient stated she is still having trouble with pain as though there is still a stone that has not passed.\T\nbsp; She stated she will call Dr. Morales, PCP, to schedule follow up visit. 03/17/2019 [facility] Called patient - transferred call to Dr. Morales to schedule ED follow up appointment. 08/27/2017 [facility] - Patient is currently established with [facility]. If patient is seen in the ED during business hours. Please contact CHWs at [facility] at Ext [phone]. Care Recommendation: This patient has had 5 or more Emergency Department visits in the last 12 months.\T\nbsp; Patient requires education on the scope and purpose of the ED as an acute care provider not a Primary Care Provider and should not be utilized for chronic conditions.\T\nbsp; If patient returns to ED please contact Community Health WorkerKarime at [phone]. These are guidelines and the provider should exercise clinical judgment when providing care. E.D. VISIT COUNT (12 MO.) [address] [facility] [address] [facility] TOTAL 5 NOTE: Visits indicate total known visits. ED/UCC VISIT TRACKING (12 MO.) 12/08/2020 15:34 [facility] [place] TYPE: Emergency COMPLAINT: - LEFT FLANK PAIN, URINE PROBLEM, NAUSEA 07/22/2020 12:40 [facility] [place] TYPE: Emergency COMPLAINT: - L HAND PAIN DIAGNOSES: - Sprain of unspecified part of left wrist and hand, initial encounter - Allergy status to other drugs, medicaments and biological substances - Allergy status to other antibiotic agents - Sprain of unspecified part of left wrist and hand, initial encounter - Nicotine dependence, unspecified, uncomplicated - Other jail (current) drug therapy - Other and unspecified overexertion or strenuous movements or postures, initial encounter - Migraine, unspecified, not intractable, without status migrainosus - Allergy status to penicillin - Allergy status to narcotic agent 03/30/2020 13:12 [facility] [place] TYPE: Emergency COMPLAINT: - BLEEDING 01/01/2020 10:57 [facility] [place] TYPE: Emergency [...] - Lower abdominal pain, unspecified - Other jail (current) drug therapy - Allergy status to other drugs, medicaments and biological substances - Allergy status to other antibiotic agents 12/25/2019 10:[address] [facility] [place] TYPE: Emergency COMPLAINT: - FLANK [...] visits to display in this time frame [email or web address]
[2020-12-08] MEDS ORDERED: CYCLOBENZAPRINE10 MG PO (18:57)
== END 2020-12-08 19:14 | disposition home or self-care (01) ==
LOC: ED 15:33
DX: M54.50 Low back pain, unspecified (principal); G43.909 Migraine, unspecified, not intractable, without status migrainosus; F17.200 Nicotine dependence, unspecified, uncomplicated; Z88.6 Allergy status to analgesic agent; Z88.1 Allergy status to other antibiotic agents; Z88.8 Allergy status to other drugs, medicaments and biological substances; Z88.5 Allergy status to narcotic agent; Z88.0 Allergy status to penicillin; Z79.899 Other long term (current) drug therapy
CPT/HCPCS: 80053; 81001; 83690; 84703; 85025; 96374; 96375; 99283-25; J1885; J2550

== ENCOUNTER 2020-12-29 12:14 | Emergency (ER) | payer BC ==
[~2020-12-29] VITALS: Ht 149.9 cm; Wt 59.2 kg
[~2020-12-29 12:14] MED LIST changes: +CYCLOBENZAPRINE10 MG PO
--- OUTSIDE RECORDS SUMMARY | 2020-12-29 15:02 | XMS ---
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 Care History Medical/Surgical 12/09/2020 [facility] Follow up visit 12/09/[address] morales. 12/29/2019 [facility] Patient stated she is still having trouble with pain as though there is still a stone that has not passed.\T\nbsp; She stated she will call Dr. Morales, PCP, to schedule follow up visit. 03/17/2019 [facility] Called patient - transferred call to Dr. Morales to schedule ED follow up appointment. E.DMeena VISIT COUNT (12 MO.) 5 [facility]. TOTAL 5 NOTE: Visits indicate total known visits. ED/UCC VISIT TRACKING (12 MO.) 12/29/2020 12:[address] [facility] [place] TYPE: Emergency COMPLAINT: - HEADACHE 12/08/2020 15:34 [facility] [place] TYPE: Emergency COMPLAINT: - LEFT FLANK PAIN, URINE PROBLEM, NAUSEA DIAGNOSES: - Nicotine dependence, unspecified, uncomplicated - Migraine, unspecified, not intractable, without status migrainosus - Allergy status to penicillin - Allergy status to other drugs, medicaments and biological substances - Allergy status to analgesic agent - Allergy status to other antibiotic agents - Other termite control servicer (current) drug therapy - LOW BACK PAIN, UNSPECIFIED - Allergy status to narcotic agent 07/22/2020 12:40 [facility] [place] TYPE: Emergency COMPLAINT: - L HAND PAIN DIAGNOSES: - Sprain of unspecified part of left wrist and hand, initial encounter - Allergy status to other drugs, medicaments and biological substances - Allergy status to other antibiotic agents - Sprain of unspecified part of left wrist and hand, initial encounter - Nicotine dependence, unspecified, uncomplicated - Other termite control servicer (current) drug therapy - Other and unspecified [...] - Lower abdominal pain, unspecified - Other termite control servicer (current) drug therapy - Allergy status to other drugs, medicaments and biological substances - Allergy status to other antibiotic agents INPATIENT VISIT TRACKING (12 MO.) No inpatient visits to display in this time frame [email or web address]
== END 2020-12-29 15:24 | disposition home or self-care (01) ==
LOC: ED 12:14
DX: G43.909 Migraine, unspecified, not intractable, without status migrainosus (principal); F17.200 Nicotine dependence, unspecified, uncomplicated; Z87.442 Personal history of urinary calculi; Z90.710 Acquired absence of both cervix and uterus; Z90.89 Acquired absence of other organs; Z90.49 Acquired absence of other specified parts of digestive tract; Z88.1 Allergy status to other antibiotic agents; Z88.5 Allergy status to narcotic agent; Z88.8 Allergy status to other drugs, medicaments and biological substances; Z79.899 Other long term (current) drug therapy
CPT/HCPCS: 96372; 99283; J1885; J2550; J3030

== ENCOUNTER 2021-01-22 20:05 | Emergency (ER) | payer BC ==
[~2021-01-22] VITALS: Ht 149.9 cm; Wt 62.9 kg
--- OUTSIDE RECORDS SUMMARY | 2021-01-22 20:08 | XMS ---
PreManage Notification: NINA SPEARS Security [place] Cross[place] Supervisor Events No recent Security Events currently on file CRITERIA MET - Group Notification - [facility] - Has Care Guidelines - [facility] - 2 Visits in 30 Days CARE PROVIDERS JUSTICE MORALES Internal Medicine 01/02/2020-Current PHONE: [phone] Justin has no Care Guidelines for this patient. Care History Medical/Surgical 12/30/2020 [facility] Patient battles with chronic pain in multiple areas, including migraines. Patient sees Dr. Morales, PCP, regularly. She has been referred to Dr. Walker. 12/09/2020 [facility] Follow up visit 12/09/[address] morales. 12/29/2019 [facility] Patient stated she is still having trouble with pain as though there is still a stone that has not passed.\T\nbsp; She stated she will call Dr. Morales, PCP, to schedule follow up visit. [facility].D. [facility] MO[facility] TOTAL 5 NOTE: Visits indicate total known visits. ED/UCC VISIT TRACKING (12 MO.) 01/22/2021 20:[address] [facility] [place] TYPE: Emergency COMPLAINT: - CONSTIPATION, STOMACH PAIN 12/29/2020 12:15 [facility] [place] TYPE: Emergency COMPLAINT: - HEADACHE DIAGNOSES: - Allergy status to narcotic agent - Headache, unspecified - Allergy status to other drugs, medicaments and biological substances - Acquired absence of other specified parts of digestive tract - Nicotine dependence, unspecified, uncomplicated - Migraine, unspecified, not intractable, without status migrainosus - Acquired absence of other organs - Personal history of urinary calculi - Other fdc (current) drug therapy - Allergy status to other antibiotic agents - Acquired absence of both cervix and uterus 12/08/2020 15:34 [facility] [place] TYPE: Emergency COMPLAINT: - LEFT FLANK PAIN, URINE PROBLEM, NAUSEA DIAGNOSES: - Nicotine dependence, unspecified, uncomplicated - Migraine, unspecified, not intractable, without status migrainosus - Allergy status to penicillin - Allergy status to other drugs, medicaments and biological substances - Allergy status to analgesic agent - Allergy status to other antibiotic agents - Other termite treater helper (current) drug therapy - LOW BACK PAIN, [...] Nicotine dependence, unspecified, uncomplicated - Other termite treater helper (current) drug therapy - Other and unspecified overexertion or strenuous movements or postures, initial encounter - Migraine, unspecified, not intractable, without status migrainosus - Allergy status to penicillin - Allergy status to narcotic agent 03/30/2020 13:12 [facility] [place] TYPE: Emergency COMPLAINT: - BLEEDING INPATIENT VISIT TRACKING (12 MO.) No inpatient visits to display in this time frame [id number]
[2021-01-22] MEDS ORDERED: SENNA-DOCUSATE1 EAC1 PO (23:07)
[2021-01-22] MEDS ORDERED: FLEET ENEMA133 ML PR (23:07)
--- NOTE | 2021-01-23 17:16 | EKG ---
[facility] [address] [place], [place] [address] Signed Normal sinus rhythm Normal ECG When compared with ECG of 11-AUG-2018 14:23, No significant change was found Confirmed by KATERINA FLORES MD ([id number]) on 01/23/2021 5:16:24 PM Electronically Signed By: KATERINA FLORES MD 01/23/21 1716 PATIENT NAME: NINA SPEARS JOHN Electrocardiogram DATE OF : 71 PHYSICIAN: KATERINA FLORES MD REPORT #: [id number] REPORT IS CONFIDENTIAL AND NOT TO BE RELEASED WITHOUT AUTHORIZATION
== END 2021-01-23 00:37 | disposition home or self-care (01) ==
LOC: ED 20:05
DX: K59.00 Constipation, unspecified (principal); G43.909 Migraine, unspecified, not intractable, without status migrainosus; F17.200 Nicotine dependence, unspecified, uncomplicated; Z88.1 Allergy status to other antibiotic agents; Z88.8 Allergy status to other drugs, medicaments and biological substances; Z88.0 Allergy status to penicillin; Z88.5 Allergy status to narcotic agent; Z79.899 Other long term (current) drug therapy
CPT/HCPCS: 74177; 80053; 81001; 83690; 84484; 84703; 85025; 93005; 93010; 96375; 99284-25; J2765; J3010; J7121; Q9967

== ENCOUNTER 2021-06-22 12:02 | Emergency (ER) | payer SELFPAY ==
[~2021-06-22] VITALS: Ht 149.9 cm; Wt 62.6 kg
[~2021-06-22 12:02] MED LIST changes: +FLEET ENEMA133 ML PR; +SENNA-DOCUSATE1 EAC1 PO
--- OUTSIDE RECORDS SUMMARY | 2021-06-22 12:04 | XMS ---
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 - Has Care Guidelines - Group Notification CARE PROVIDERS JUSTICE MORALES Internal Medicine 01/02/2020-Current PHONE: Unknown Justin has no Care Guidelines for this patient. Care History Medical/Surgical 01/23/2021 [facility] Patient saw Dr. Morales on 01/21/2021 for abdominal bloating and constipation. Patient has follow up visit with Dr. Morales on 01/28/2021. Gave patient info for [facility] for mental health options. 12/30/2020 [facility] Patient battles with chronic pain in multiple areas, including migraines. Patient sees Dr. Morales, PCP, regularly. She has been referred to Dr. Walker. 12/09/2020 [facility] Follow up visit 12/09/[address] morales. Zeb VISIT COUNT (12 MO.) 5 [facility] TOTAL 5 NOTE: Visits indicate total known visits. ED/UCC VISIT TRACKING (12 MO.) 06/22/2021 12:03 [facility] [place] TYPE: Emergency COMPLAINT: - RACING HEART, SHAKY, NAUSEA 01/22/2021 20:05 [facility] [place] TYPE: Emergency COMPLAINT: - CONSTIPATION, STOMACH PAIN DIAGNOSES: - Allergy status to narcotic agent - Allergy status to other antibiotic agents - Other mcc (current) drug therapy - Unspecified abdominal pain - Allergy status to other drugs, medicaments and biological substances - Migraine, unspecified, not intractable, without status migrainosus - Constipation, unspecified - Nicotine dependence, unspecified, uncomplicated - Allergy status to penicillin 12/29/2020 12:15 [facility] [place] TYPE: Emergency [...] Personal history of urinary calculi - Other mcc (current) drug therapy - Allergy status to [...] status to other antibiotic agents - Other meterman (current) drug therapy - LOW BACK PAIN, [...] - Nicotine dependence, unspecified, uncomplicated - Other meterman (current) drug therapy - Other and unspecified overexertion or strenuous movements or postures, initial encounter - Migraine, unspecified, not intractable, without status migrainosus - Allergy status to penicillin - Allergy status to narcotic agent INPATIENT VISIT TRACKING (12 MO.) No inpatient visits to display in this time frame [email or web address]
[2021-06-22] MEDS ORDERED: XYZAL5 MG PO (12:24)
[2021-06-22] MEDS ORDERED: TAMIFLU75 MG PO (13:54)
--- NOTE | 2021-06-24 17:19 | EKG ---
[facility] [address] [place], [place] [address] Signed Normal sinus rhythm Normal ECG When compared with ECG of 22-JAN-2021 23:21, No significant change was found Confirmed by KATERINA FLORES MD ([id number]) on 06/24/2021 5:19:06 PM Electronically Signed By: KATERINA FLORES MD 06/24/21 1719 PATIENT NAME: NINA SPEARS JOHN Electrocardiogram DATE OF : 71 PHYSICIAN: KATERINA FLORES MD REPORT #: [id number] REPORT IS CONFIDENTIAL AND NOT TO BE RELEASED WITHOUT AUTHORIZATION
== END 2021-06-22 14:07 | disposition home or self-care (01) ==
LOC: ED 12:02
DX: B34.9 Viral infection, unspecified (principal); R00.2 Palpitations; G43.909 Migraine, unspecified, not intractable, without status migrainosus; F17.200 Nicotine dependence, unspecified, uncomplicated; Z88.1 Allergy status to other antibiotic agents; Z88.8 Allergy status to other drugs, medicaments and biological substances; Z88.0 Allergy status to penicillin; Z88.5 Allergy status to narcotic agent; Z79.899 Other long term (current) drug therapy
CPT/HCPCS: 87502; 93005; 93010; 99285-25; U0003

== ENCOUNTER 2022-03-15 09:06 | Emergency (ER) | payer SELFPAY ==
[~2022-03-15] VITALS: Ht 149.9 cm; Wt 61.5 kg
[~2022-03-15 09:06] MED LIST changes: +TAMIFLU75 MG PO
--- OUTSIDE RECORDS SUMMARY | 2022-03-15 09:14 | XMS ---
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 - Patient with suicidal and/or homicidal ideations eloped. - Patient eloped with IV in place. Details: PATIENT LWBS Elopement at [facility] 07/25/2021 17:21 - Patient eloped before treatment completed. - Patient with suicidal and/or homicidal ideations eloped. - Patient eloped with IV in place. Details: PATIENT LWBS CRITERIA MET - [facility] - Has Care Guidelines - Group Notification CARE PROVIDERS JUSTICE MORALES Internal Medicine 01/02/2020-Current PHONE: Unknown Justin has no Care Guidelines for this patient. Care History Medical/Surgical 06/23/2021 [facility] Patient is aware of the Walk In [facility]. Her last appt. with PCP Dr. Morales was on 02/24/2021 for Telehealth. 06/22/2021 [facility] - Patient is currently established with [facility]. If patient is seen in the ED during business hours. Please contact CHWs at [facility] at Ext [phone]. Care Recommendation: This patient has had 5 or more Emergency Department visits in the last 12 months.\T\nbsp; Patient requires education on the scope and purpose of the ED as an acute care provider not a Primary Care Provider and should not be utilized for chronic conditions.\T\nbsp; If patient returns to ED please contact [facility] at [phone]. These are guidelines and the provider should exercise clinical judgment when providing care. 01/23/2021 [facility] Patient saw Dr. Morales on 01/21/2021 for abdominal bloating and constipation. Patient has follow up visit with Dr. Morales on 01/28/2021. Gave patient info for [facility] for mental health options. Zeb VISIT COUNT (12 MO.) 4 [facility]. TOTAL 4 NOTE: Visits indicate total known visits. ED/C VISIT TRACKING (12 MO.) 03/15/2022 09:[address] [facility] [place] TYPE: Emergency COMPLAINT: - FLU SYMPTOMS, COUGH, VOMITING 11/20/2021 16:[address] [facility] [place] TYPE: Emergency COMPLAINT: - DIZZINESS 07/25/2021 17:[address] [facility] [address] [facility] [place] TYPE: Emergency COMPLAINT: - GENTIAL PAIN 06/22/2021 12:[address] [facility] [place] TYPE: Emergency COMPLAINT: - RACING HEART, SHAKY, NAUSEA DIAGNOSES: - Migraine, unspecified, not intractable, without status migrainosus - Allergy status to other drugs, medicaments and biological substances - Nicotine dependence, unspecified, uncomplicated - Other terminal make up operator (current) drug therapy - Viral infection, unspecified - Palpitations - Dizziness and giddiness - Allergy status to other antibiotic agents - Allergy status to penicillin - Allergy status to narcotic agent INPATIENT VISIT TRACKING (12 MO.) No inpatient visits to display in this time frame [id number]
[2022-03-15] MEDS ORDERED: ROBITUSSIN COU237 M2 PO (10:49)
[2022-03-15] MEDS ORDERED: PREDNISONE20 MG PO (10:49)
[2022-03-15] MEDS ORDERED: BACTRIM DS TAB1 EACH PO (10:49)
== END 2022-03-15 11:10 | disposition home or self-care (01) ==
LOC: ED 09:06
DX: J06.9 Acute upper respiratory infection, unspecified (principal); N39.0 Urinary tract infection, site not specified; F17.200 Nicotine dependence, unspecified, uncomplicated; Z20.822 Contact with and (suspected) exposure to COVID-19; Z88.1 Allergy status to other antibiotic agents; Z88.5 Allergy status to narcotic agent; Z88.8 Allergy status to other drugs, medicaments and biological substances
CPT/HCPCS: 81001; 87502; 94640; 94664; 99283-25; C9803; J7512; U0003

== ENCOUNTER 2023-01-10 08:27 | Emergency (ER) | payer OTHER ==
[~2023-01-10] VITALS: Ht 149.9 cm; Wt 62.7 kg
[~2023-01-10 08:27] MED LIST changes: +CEPHALEXIN500 M1 PO; +HYDROCODON-ACE1 EA10 PO; +ONDANSETRON ODT4 MG PO; +PREDNISONE20 MG PO; +ROBITUSSIN COU237 M2 PO
--- OUTSIDE RECORDS SUMMARY | 2023-01-10 08:31 | XMS ---
PreManage Notification: NINA SPEARS Security Ldr Rn Events 2 event(s) in the past 18 months Most recent security events: Elopement at [facility] 11/20/2021 16:25 - Patient eloped before treatment completed. - Patient with suicidal and/or homicidal ideations eloped. - Patient eloped with IV in place. Details: PATIENT LWBS Elopement at [facility] 07/25/2021 17:21 - Patient eloped before treatment completed. - Patient with suicidal and/or homicidal ideations eloped. - Patient eloped with IV in place. Details: PATIENT LWBS CRITERIA MET - Group Notification CARE PROVIDERS JUSTICE MORALES Internal Medicine 01/02/2020-Current PHONE: Unknown Justin has no Care Guidelines for this patient. Care History Medical/Surgical 06/23/2021 [facility] Patient is aware of the Walk In Clinic. Her last appt. with PCP Dr. Morales was on 02/24/2021 for Telehealth. 06/22/2021 [facility] - Patient is currently established with [facility]. If patient is seen in the ED during business hours. Please contact CHWs at [facility] at Ext [phone]. Care Recommendation: This patient has had 5 or more Emergency Department visits in the last 12 months.\T\nbsp; Patient requires education on the scope and purpose of the ED as an acute care provider not a Primary Care Provider and should not be utilized for chronic conditions.\T\nbsp; If patient returns to ED please contact [facility] at [phone]. These are guidelines and the provider should exercise clinical judgment when providing care. 01/23/2021 [facility] Patient saw Dr. Morales on 01/21/2021 for abdominal bloating and constipation. Patient has follow up visit with Dr. Morales on 01/28/2021. Gave patient info for [facility] for mental health options. ELul VISIT COUNT (12 MO.) 3 [facility]. TOTAL 3 NOTE: Visits indicate total known visits. ED/C VISIT TRACKING (12 MO.) 01/10/2023 08:28 [facility] TYPE: Emergency COMPLAINT: - ABD PAIN, VOMITING 03/24/2022 11:44 [facility] [place] TYPE: Emergency COMPLAINT: - UTI DIAGNOSES: - Allergy status to narcotic agent - Allergy status to other antibiotic agents - Allergy status to other drugs, medicaments and biological substances - Lower abdominal pain, unspecified - Migraine, unspecified, not intractable, without status migrainosus - Nicotine dependence, unspecified, uncomplicated - Tubulo-interstitial nephritis, not specified as acute or chronic 03/15/2022 09:07 [facility] [place] TYPE: Emergency COMPLAINT: - FLU SYMPTOMS, COUGH, VOMITING DIAGNOSES: - Acute upper respiratory infection, unspecified - Allergy status to narcotic agent - Allergy status to other antibiotic agents - Allergy status to other drugs, medicaments and biological substances - Contact with and (suspected) exposure to COVID-19 - Cough, unspecified - Nicotine dependence, unspecified, uncomplicated - Urinary tract infection, site not specified INPATIENT VISIT TRACKING (12 MO.) No inpatient visits to display in this time frame [email or web address]
[2023-01-10] MEDS ORDERED: BENADRYL25 MG PO (08:49)
[2023-01-10] MEDS ORDERED: XYZAL5 MG PO (08:50)
[2023-01-10 09:55] LABS: BASOPHILS 0.6 % (0-2); EOSINOPHILS 1.3 % (0-6); HEMATOCRIT 43.6 % (35.0-50.0); HEMOGLOBIN 14.7 g/dL (12.0-18.0); LYMPHOCYTES 28.8 % (24-44); MCH 32.4 (27-36); MCHC 33.8 g/dl (30-36); MONOCYTES 6.9 % (0-12); NEUTROPHILS 62.4 % (39-80); PLATELET COUNT 303 K/uL (140-440); RBC 4.55 M/ul (4.3-5.7); RDW 13.8 (10.5-15.0)
[2023-01-10 10:05] LABS: BILIRUBIN, URINE NEGATIVE (negative); BLOOD/HGB, URINE SMALL (Negative); KETONE, URINE NEGATIVE (Negative); LEUK ESTERASE, URINE NEGATIVE (negative); NITRITE, URINE NEGATIVE (negative)
[2023-01-10 10:10] LABS: ALBUMIN 4.3 g/dL (3.4-5.0); ALBUMIN/GLOBULIN RATIO 1.26 (1.1-2.4); ANION GAP 10.9 (7-21); BILIRUBIN, TOTAL 0.4 ng/dL (0.2-1.0); BUN/CREATININE RATIO 12.24 (6.0-28.6); CALCIUM 10.3 mg/dL (8.5-10.1); CREATININE, SERUM 0.98 mg/dL (0.55-1.02); POTASSIUM 3.9 mmol/L (3.5-5.1); PROTEIN, TOTAL 7.7 g/dL (6.4-8.2)
[2023-01-10 10:18] LABS: BACTERIA, URINE NONE SEEN /hpf (negative); CRYSTALS, URINE NONE SEEN (0-1+); EPITHELIAL CELLS, URINE SQUAMOUS 1+ /lpf (0-1+); WHITE BLOOD CELLS, URINE 0-1 /HPF (0-5)
[2023-01-10 10:19] LABS: CASTS, URINE NONE SEEN \\lpf; COLLECTION TYPE, URINE CLEAN CATCH; REFLEX CULTURE, URINE No (No)
[2023-01-10] MEDS ORDERED: PROMETHAZINE HC25 M1 PO (14:17)
[2023-01-10 14:41] VITALS: BP 103/93
== END 2023-01-10 14:41 | disposition home or self-care (01) ==
LOC: ED 08:27
PROVIDERS: Emergency Medicine
DX: R10.12 Left upper quadrant pain (principal); R11.10 Vomiting, unspecified; F17.200 Nicotine dependence, unspecified, uncomplicated; Z88.8 Allergy status to other drugs, medicaments and biological substances; Z88.1 Allergy status to other antibiotic agents; Z88.0 Allergy status to penicillin; Z88.5 Allergy status to narcotic agent; Z79.899 Other long term (current) drug therapy
CPT/HCPCS: 36415; 74177; 80053; 81001; 83690; 84703; 85025; 96375; 96376; 99284-25; J1170; J1200; J1790; Q9967